=== PATIENT | male | born 2005 | race African-American/Black ===

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

== ENCOUNTER 2024-01-27 19:39 | Emergency (ER) | payer MEDICAID ==
[~2024-01-27] VITALS: Ht 185.4 cm; Wt 84.0 kg
[~2024-01-27 19:39] MED LIST: IBUP-2029 MT
[2024-01-27 20:00] VITALS: O2SAT 98
[2024-01-27] MEDS: IBUPROFEN 400MG TABLET PO ONE (20:00)
[2024-01-27 22:15] VITALS: TEMP 98.3
[2024-01-27 22:45] VITALS: BP 113/80; PULSE 94; RESP 14
[2024-01-27] MEDS: IBUPROFEN 400MG TABLET PO NR (22:45)
== END 2024-01-27 22:45 | disposition home or self-care (01) ==
LOC: ER 19:39
DX: S83.001A Unspecified subluxation of right patella, initial encounter (principal); X58.XXXA Exposure to other specified factors, initial encounter; Y93.89 Activity, other specified; Y92.89 Other specified places as the place of occurrence of the external cause; Y99.8 Other external cause status
CPT/HCPCS: 73564; 99283; Z7610; L1830